=== PATIENT | female | born 1990 | race Caucasian/White ===

== ENCOUNTER 2022-09-17 10:14 | Emergency (ER) | payer OTHER ==
[~2022-09-17] VITALS: Ht 157.5 cm; Wt 96.6 kg
[2022-09-17 10:30] VITALS: BP 104/70
[2022-09-17] MEDS ORDERED: PENI500T20 PO (10:39)
[2022-09-17] MEDS ORDERED: ACET-8386 PO (10:39)
--- NOTE | 2022-09-17 10:42 | NUR ---
PT D/C BY DR ROMAN. RX OF NORCO 5-325MG AND PCN SENT TO [facility].
== END 2022-09-17 10:42 | disposition home or self-care (01) ==
LOC: MED 10:14
DX: K02.9 Dental caries, unspecified (principal); Z79.899 Other long term (current) drug therapy
CPT/HCPCS: 99283

== ENCOUNTER 2022-09-23 17:26 | Emergency (ER) | payer OTHER ==
[~2022-09-23] VITALS: Ht 157.5 cm; Wt 96.8 kg
[~2022-09-23 17:26] MED LIST: ACET-8386 PO; PENI500T20 PO
[2022-09-23 18:36] VITALS: BP 116/65
--- NOTE | 2022-09-23 18:45 | NUR ---
SHAWN. HANDED ON URINE CUP.
[2022-09-23] MEDS ORDERED: ONDANSETRON 4 MG ODT PO ONE (19:10)
[2022-09-23 19:36] LABS: BASOPHILS # (AUTO) 0.1 K/uL (0.00-0.22); BASOPHILS % (AUTO) 0.4 % (0.0-2.0); EOSINOPHILS # (AUTO) 0.1 K/uL (0-0.4); EOSINOPHILS % (AUTO) 0.8 % (0.0-4.0); HEMATOCRIT 38.6 % (36-48); HEMOGLOBIN 12.7 g/dL (12.0-16.0); LYMPHOCYTES # (AUTO) 2.9 K/uL (2.5-16.5); LYMPHOCYTES % (AUTO) 22.9 % (20.5-51.1); MEAN CORPUSCULAR HEMOGLOBIN 28 pg (27-31); MEAN CORPUSCULAR HGB CONC 33 g/dL (33-37); MEAN CORPUSCULAR VOLUME 85.2 fL (80-94); MONOCYTES # (AUTO) 0.7 K/uL (0.8-1.0); MONOCYTES % (AUTO) 5.3 % (1.7-9.3); NEUTROPHILS % (AUTO) 70.6 % (42.2-75.2); PLATELET COUNT (AUTO) 262 K/uL (140-450); RED BLOOD CELL COUNT(AUTO) 4.54 MIL/uL (4.20-5.40); RED CELL DISTRIBUTION WIDTH 14.2 % (11.6-13.7); WHITE BLOOD COUNT (AUTO) 12.7 K/uL (4.8-10.8)
[2022-09-23 19:56] LABS: ALBUMIN 3.6 g/dL (3.4-5.0); ANION GAP 13.4 (8-16); CARBON DIOXIDE 28.2 mmol/L (21-32); CREATININE 0.8 mg/dL (0.6-1.3); POTASSIUM 3.6 mmol/L (3.5-5.1); TOTAL BILIRUBIN 0.3 mg/dL (0.0-1.0)
[2022-09-23] MEDS ORDERED: KETOROLAC 30 MG/ML VIAL IM ONE (20:10)
[2022-09-23 20:13] LABS: APPEARANCE,URINE CLEAR (CLEAR); BILIRUBIN,URINE NEGATIVE (NEGATIVE); BLOOD, URINE NEGATIVE (NEGATIVE); COLOR,URINE YELLOW (YELLOW); LEUKOCYTE ESTERASE ,URINE TRACE (NEGATIVE); NITRITE, URINE NEGATIVE (NEGATIVE); PH,URINE 5.5 (5.0-9.0); UGLUCOSE NEGATIVE (NEGATIVE)
[2022-09-23 20:26] LABS: OTHER CASTS, URINE None Seen /LPF (None Seen); RBC,URINE 0-5 /HPF (0-5)
[2022-09-23] MEDS ORDERED: IBUP-2213 PO (20:53)
[2022-09-23] MEDS ORDERED: ONDA-188 PO (20:53)
[2022-09-23] MEDS ORDERED: CYCL-711 PO (20:53)
[2022-09-23] MEDS ORDERED: CEPH-588 PO (20:53)
--- NOTE | 2022-09-23 21:04 | NUR ---
Patient discharged with v/s stable. Written and verbal after care instructions given and explained. Patient verbalized understanding. Ambulatory with steady gait. All questions addressed prior to discharge. Advised to follow up with PMD.
== END 2022-09-23 21:04 | disposition home or self-care (01) ==
LOC: MED 17:26
DX: M54.9 Dorsalgia, unspecified (principal); Z20.822 Contact with and (suspected) exposure to COVID-19; N39.0 Urinary tract infection, site not specified; R11.2 Nausea with vomiting, unspecified; Z79.899 Other long term (current) drug therapy
CPT/HCPCS: 36415; 80053; 81001; 81025; 82948; 83690; 85025; 87086; 87426; 87804; 96372; 99283; J1885; Q0162